=== PATIENT | male | born 1995 | race African-American/Black ===

== ENCOUNTER 2017-01-01 19:09 | Emergency (ER) | payer OTHER ==
--- NOTE | 2017-01-01 20:41 | ER Document Report ---
ED Medical Screen (RME) - General Chief Complaint: Bloody Stools Stated Complaint: BLOOD IN STOOL Time Seen by Provider: 01/01/17 20:39 Notes: 21-year-old male with chief complaint of bloody stools intermittently for 2-1/2 weeks. He states that he has painful bowel movements and after the bowel movement has discomfort while sitting for a couple of hours, especially today. States there was about a tablespoon of blood in his bowel movement before arrival. Denies abdominal pain, dizziness, history of the same, denies any medications or any other medical history. - Related Data Allergies/Adverse Reactions: No Known Allergies Allergy (Unverified 01/01/17 19:20) Past Medical History Renal/ Medical History: Denies: Hx Peritoneal Dialysis Physical Exam - Vital signs Vitals: Temp Pulse Resp BP Pulse Ox 98.4 F 50 L 16 163/82 H 100 01/01/17 19:16 01/01/17 19:16 01/01/17 19:16 01/01/17 19:16 01/01/17 19:16 - General General appearance: Appears well In distress: None - Abdominal Inspection: Normal Tenderness: Nontender Course - Vital Signs Vital signs: Temp Pulse Resp BP Pulse Ox 98.4 F 50 L 16 163/82 H 100 01/01/17 19:16 01/01/17 19:16 01/01/17 19:16 01/01/17 19:16 01/01/17 19:16
--- NOTE | 2017-01-01 22:05 | ER Document Report ---
HPI - HPI Patient complains to provider of: blood in stool Pain Level: 3 Context: Patient is a 21-year-old male with chief complaint of bloody stools intermittently for 2-1/2 weeks. He states that he has painful bowel movements and after the bowel movement has discomfort while sitting for a couple of hours , especially today. States there was about a tablespoon of blood in his bowel movement before arrival. Denies abdominal pain, dizziness, history of the same , denies any medications or any other medical history. - CARDIOVASCULAR Cardiovascular: DENIES: Chest pain - DERM Skin Color: Normal Past Medical History - General Information source: Patient - Social History Smoking Status: Current Every Day Smoker Chew tobacco use (# tins/day): No Frequency of alcohol use: None Drug Abuse: None Lives with: Family Family History: Reviewed & Not Pertinent Patient has suicidal ideation: No Patient has homicidal ideation: No - Medical History Medical History: Negative Renal/ Medical History: Denies: Hx Peritoneal Dialysis Surgical Hx: Negative - Immunizations Hx Diphtheria, Pertussis, Tetanus Vaccination: No Vertical Provider Document - CONSTITUTIONAL General Appearance: WD/WN, No Apparent Distress - HEENT HEENT: Atraumatic, Normal ENT Exam, Normocephalic - RESPIRATORY Respiratory: Breath Sounds Normal, No Respiratory Distress O2 Sat by Pulse Oximetry: 100 - CARDIOVASCULAR Cardiovascular: Regular Rate, Regular Rhythm - GI/ABDOMEN Gastrointestinal: Abdomen Soft, Abdomen Non-Tender Notes: Rectal examination shows a external hemorrhoid at 8 o'clock position with slight swelling, no current bleeding, normal examination of the anus, rectum otherwise, unremarkable examination otherwise. - BACK Back: Normal Inspection - MUSCULOSKELETAL/EXTREMETIES Musculoskeletal/Extremeties: MAEW, FROM, Non-Tender Course - Re-evaluation Re-evalutation: Examination shows an external hemorrhoid, this is most likely the source of patient's symptoms, no other abnormalities noted on rectal exam, soft abdomen, well-appearing patient, discussed treatment of this, discussed primary care follow-up, discussed return precautions, patient states understanding and agreement. - Vital Signs Vital signs: Temp Pulse Resp BP Pulse Ox 98.4 F 50 L 16 163/82 H 100 01/01/17 19:16 01/01/17 19:16 01/01/17 19:16 01/01/17 19:16 01/01/17 19:16 Discharge - Discharge Clinical Impression: Blood present in stool, External hemorrhoid Condition: Stable Disposition: HOME, SELF-CARE Additional Instructions: Examination is consistent with an external hemorrhoid, based on your examination this appears to be the cause of the bleeding. Apply the medication as directed, take stool softener for several days, avoid any straining on the toilet, increase fiber and fluid in diet. Follow up with Primary Care. Return to the ED for any concerning symptoms. Prescriptions: Docusate Sodium [Colace 100 mg Capsule] 100 mg PO DAILY #30 capsule Phenylephrine HCl [Anusol Suppository] 1 supp.rect LA BID #28 supp.rect Forms: Elevated Blood Pressure
[2017-01-01 22:17] VITALS: BP 148/84
== END 2017-01-01 22:10 | disposition home or self-care (01) ==
LOC: ER 19:09
DX: K92.1 Melena (principal); K64.4 Residual hemorrhoidal skin tags; F17.200 Nicotine dependence, unspecified, uncomplicated
CPT/HCPCS: 99283

== ENCOUNTER 2018-12-29 17:07 | Emergency (ER) | payer OTHER ==
[2018-12-29] MEDS ORDERED: ASPIRIN 81 MG TABLET, CHEWABLE PO ONE (17:31)
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
[2018-12-29 18:05] LABS: ABSOLUTE EOSINOPHILS # (AUTO) 0.2 10^3/uL (0.0-0.6); ABSOLUTE LYMPHOCYTES (AUTO) 1.2 10^3/uL (0.5-4.7); ABSOLUTE MONOCYTES (AUTO) 0.4 10^3/uL (0.1-1.4); ABSOLUTE NEUT (AUTO) 2.4 10^3/uL (1.7-8.2); EOSINOPHILS % (AUTO) 4.8 % (0-6); HEMATOCRIT 39.6 % (37.9-51.0); HEMOGLOBIN 12.7 g/dL (13.5-17.0); LYMPHOCYTES % (AUTO) 27.7 % (13-45); MEAN CORPUSCULAR HEMOGLOBIN 26.6 pg (27.0-33.4); MEAN CORPUSCULAR VOLUME 83 fl (80-97); MONOCYTES % (AUTO) 9.4 % (3-13); PLATELET COUNT 286 10^3/uL (150-450); RED BLOOD COUNT 4.77 10^6/uL (4.35-5.55); RED CELL DISTRIBUTION WIDTH 14.8 % (11.5-14.0); SEGMENTED NEUTROPHILS % (AUTO) 57.1 % (42-78); TOTAL CELLS COUNTED % (AUTO) 100 %; WHITE BLOOD COUNT 4.2 10^3/uL (4.0-10.5)
--- NOTE | 2018-12-29 18:11 | RADIOLOGY REPORT (SQ) ---
EXAM DESCRIPTION: CHEST 2 VIEWS COMPLETED DATE/TIME: 12/29/2018 5:52 pm REASON FOR STUDY: left chest pain, father mi 46yo COMPARISON: None. EXAM PARAMETERS: NUMBER OF VIEWS: two views TECHNIQUE: Digital Frontal and Lateral radiographic views of the chest acquired. RADIATION DOSE: NA LIMITATIONS: none FINDINGS: LUNGS AND PLEURA: No opacities, masses or pneumothorax. No pleural effusion. MEDIASTINUM AND HILAR STRUCTURES: No masses or contour abnormalities. HEART AND VASCULAR STRUCTURES: Heart normal size. No evidence for failure. BONES: No acute findings. HARDWARE: None in the chest. OTHER: No other significant finding. IMPRESSION: NO ACUTE RADIOGRAPHIC FINDING IN THE CHEST. TECHNICAL DOCUMENTATION: JOB ID: [id number] [id number] 2010 [employer]- All Rights Reserved Reading location - IP/workstation name: [employer]
[2018-12-29 18:27] LABS: ALANINE AMINOTRANSFERASE 58 U/L (21-72); ALBUMIN 4.3 g/dL (3.5-5.0); ALKALINE PHOSPHATASE 70 U/L (38-126); ANION GAP 8 (5-19); ASPARTATE AMINO TRANSFERASE 36 U/L (17-59); BILIRUBIN,DIRECT 0.2 mg/dL (0.0-0.4); BILIRUBIN,TOTAL 0.2 mg/dL (0.2-1.3); BLOOD UREA NITROGEN 14 mg/dL (7-20); CALCIUM 9.9 mg/dL (8.4-10.2); CARBON DIOXIDE 29 mmol/L (22-30); CHLORIDE 105 mmol/L (98-107); POTASSIUM 4.1 mmol/L (3.6-5.0); SODIUM 141.9 mmol/L (137-145); TOTAL PROTEIN 7.6 g/dL (6.3-8.2)
[2018-12-29 18:28] LABS: GLUCOSE 69 mg/dL (75-110)
[2018-12-29 18:38] LABS: CREATINE KINASE MB 0.81 ng/mL (<4.55)
[2018-12-29 18:39] LABS: TROPONIN I < 0.012 ng/mL
--- NOTE | 2018-12-29 21:06 | ER Document Report ---
ED General - General Chief Complaint: Chest Pain Stated Complaint: CHEST PAIN Time Seen by Provider: 12/29/18 17:31 Primary Care Provider: JESSICA,DEVEN [Primary Care Provider] - Follow up as needed Mode of Arrival: Ambulatory Notes: Patient is a 23-year-old male with a past medical history of essential hypertension who presents with chest discomfort. The patient reports that since waking up at 9 AM this morning he has had a stabbing, aching, constant discomfort to his chest along the lateral lower rib spaces. States that it is worsened by moving. He has not tried nothing to improve the pain. Denies any history of similar pain or injury in the past. Denies pleuritic component to the pain. No history of DVT or pulmonary embolus. Does not use any form of supplemental estrogen. Does not have any associated shortness of breath. Regards to symptoms as being quite mild in nature. Denies any known trauma to the area. No history of similar symptoms in the past. TRAVEL OUTSIDE OF THE [place] IN LAST 30 DAYS: No - Related Data Allergies/Adverse Reactions: No Known Allergies Allergy (Verified 12/29/18 17:08) Past Medical History - General Information source: Patient - Social History Smoking Status: Never Smoker Frequency of alcohol use: None Drug Abuse: None Lives with: Spouse/Significant other Family History: Reviewed & Not Pertinent Patient has suicidal ideation: No Patient has homicidal ideation: No - Past Medical History Cardiac Medical History: Reports: Hx Hypertension Renal/ Medical History: Denies: Hx Peritoneal Dialysis - Immunizations Hx Diphtheria, Pertussis, Tetanus Vaccination: No Review of Systems - Review of Systems Notes: Constitutional: Negative for fever. HENT: Negative for sore throat. Eyes: Negative for visual changes. Cardiovascular: Positive for chest pain. Respiratory: Negative for shortness of breath. Gastrointestinal: Negative for abdominal pain, vomiting or diarrhea. Genitourinary: Negative for dysuria. Musculoskeletal: Negative for back pain. Skin: Negative for rash. Neurological: Negative for headaches, weakness or numbness. 10 point ROS negative except as marked above and in HPI. Physical Exam - Vital signs Vitals: Temp Pulse Resp BP Pulse Ox 98.2 F 77 20 159/83 H 98 12/29/18 17:18 12/29/18 17:18 12/29/18 17:18 12/29/18 17:18 12/29/18 17:18 Interpretation: Hypertensive Notes: PHYSICAL EXAMINATION: GENERAL: Well-appearing, well-nourished and in no acute distress. HEAD: Atraumatic, normocephalic. EYES: Pupils equal round and reactive to light, extraocular movements intact, sclera anicteric, conjunctiva are normal. ENT: nares patent, oropharynx clear without exudates. Moist mucous membranes. NECK: Normal range of motion, supple without lymphadenopathy LUNGS: Breath sounds clear to auscultation bilaterally and equal. No wheezes rales or rhonchi. HEART: Regular rate and rhythm without murmurs ABDOMEN: Soft, nontender, normoactive bowel sounds. No guarding, no rebound. No masses appreciated. EXTREMITIES: Normal range of motion, no pitting or edema. No cyanosis. NEUROLOGICAL: No focal neurological deficits. Moves all extremities spontaneously and on command. PSYCH: Normal mood, normal affect. SKIN: Warm, Dry, normal turgor, no rashes or lesions noted. Course - Re-evaluation Re-evalutation: 12/29/18 21:04 Presentation of chest pain in an otherwise well appearing patient. Low clinical suspicion for ACS given clinical history, exam, EKG without ST elevations or depressions, and negative initial troponin. HEART score less than or equal to 3. PE also seems unlikely given clinical history, absence of tachycardia or dyspnea. Patient is PERC criteria negative. CXR without evidence of pneumothorax or pneumonia. No widened mediastinum. Aortic dissection also seems unlikely given history, symmetric pulses, CXR, and vitals. Pain has been continuous for 12 hours and I do not believe serial cardiac markers are indicated based on the low probability of a cardiac diagnosis as well as the initial troponin being obtained greater than 8 hours after onset of chest pain. Symptoms seem very mu sculoskeletal in origin and have advised the patient on symptomatic care at home. At this time will discharge with return precautions and follow-up recommendations. Verbal discharge instructions given a the bedside and opportunity for questions given. Medication warnings reviewed. Patient is in ag reement with this plan and has verbalized understanding of return precautions and the need for primary care follow-up in the next 24-72 hours. - Vital Signs Vital signs: Temp Pulse Resp BP Pulse Ox 97.8 F 61 15 151/75 H 98 12/29/18 21:09 12/29/18 21:09 12/29/18 21:09 12/29/18 21:09 12/29/18 21:09 - Laboratory Result Diagrams: 12/29/18 17:44 12/29/18 17:44 Laboratory results interpreted by me: 12/29/18 12/29/18 17:44 17:44 Hgb 12.7 L MCH 26.6 L RDW 14.8 H Glucose 69 L - Diagnostic Test Radiology reviewed: Image reviewed, Reports reviewed Radiology results interpreted by me: 12/29/18 21:05 Chest x-ray: No acute infiltrate or pneumothorax - EKG Interpretation by Me Additional EKG results interpreted by me: 12/29/18 21:05 Sinus rhythm, rate 64. No ST elevations or depressions. QTC is 392. Discharge - Discharge Clinical Impression: Chest wall pain, Essential hypertension Condition: Good Disposition: HOME, SELF-CARE Additional Instructions: You were seen today for chest pain. The exact cause of your pain is unclear but appears to likely be related to the muscles of your chest wall. However, based on your cardiac enzyme testing, chest x-ray, and EKG it does not appear that it is from an immediately life-threatening cause at this time. Please return to emergency department immediately if you have worsening of your chest pain, shortness of breath, vomiting, become unable to exert yourself due to pain or difficulty breathing, you pass out, or have any pain that radiates into your arms, jaw, or back. Please also return if you have any additional symptoms that are concerning to you. Referrals: [facility] [Primary Care Provider] - Follow up as needed
[2018-12-29 21:10] VITALS: BP 151/75
--- NOTE | 2018-12-29 22:11 | EKG REPORT ---
SEVERITY:- NORMAL ECG - SINUS RHYTHM : Confirmed by: Fernando Mckeon MD 29-Dec-2018 22:10:46
== END 2018-12-29 21:37 | disposition home or self-care (01) ==
LOC: ER 17:07
DX: R07.89 Other chest pain (principal); I10 Essential (primary) hypertension
CPT/HCPCS: 36415; 71046; 80053; 82553; 84484; 85025; 93005; 93010; 99285